=== PATIENT | male | born 1980 | race African-American/Black ===

== ENCOUNTER → 2018-08-16 | Outpatient (CLI) | payer OTHER ==
--- NOTE | 2018-08-17 04:59 | REP ---
Clinical: Pulmonary nodule. Technique: Axial noncontrast images from the thoracic inlet to the upper abdomen with coronal and sagittal re-formations. Comparison: None. Findings: Bilateral lung arnett are well-aerated and clear. No pulmonary parenchymal consolidation, significant nodule or mass lesion appreciated. Tracheobronchial tree is patent. No obvious adenopathy. The mediastinum demonstrates normal thoracic aorta, pulmonary vasculature and heart/pericardium. Surrounding musculoskeletal structures are intact. Limited upper abdomen suggests 2.5 cm exophytic left anterior renal cyst. Impression: 1. No acute mediastinal or pleuroparenchymal process. 2. Suspected 2.5 cm left renal cyst may be followed by ultrasound if necessary. Electronically Signed by Bill Muñiz MD 08/17/2018 04:50 A
== END ==
LOC: M RAD 15:10
PROVIDERS: ATTEND Physician Assistant Medical
DX: R91.1 Solitary pulmonary nodule (principal)